=== PATIENT | male | born 2000 | race African-American/Black ===

== ENCOUNTER 2018-02-04 02:50 | Emergency (ER) | payer BC, MEDICAID, OTHER ==
[~2018-02-04] VITALS: Ht 172.7 cm; Wt 68.9 kg
--- NOTE | 2018-02-04 03:01 | NUR ---
PT HARITHARA FROM TRANSITIONAL HOME STATES "RT RIB PAIN SINCE YESTERDAY MORNING"; DENIES TRAUMA PT AOX3 RR EVEN AND UNLABORED. NO SOB NOTED. NAD NOTED. NO NVD AT THIS TIME. PT GOWNED AND PLACED ON MONITOR. DR WALLIS AT BEDSIDE FOR EVAL.
[2018-02-04] MEDS ORDERED: HYDROCODONE/APAP 10/325MG 1 EA TABLET ONE (03:06)
[2018-02-04] MEDS: HYDROCODONE/APAP 10/325MG 1 EA TABLET PO ONE (03:09)
--- NOTE | 2018-02-04 03:37 | NUR ---
RADIOLOGY AT BEDSIDE FOR CXR
[2018-02-04 03:59] LABS: CALCIUM, SERUM 8.8 mg/dL (8.5-10.1); CREATININE 0.6 mg/dL (0.6-1.3); POTASSIUM 3.5 mmol/L (3.5-5.1)
[2018-02-04 04:02] LABS: BASOPHILS # (AUTO) 0.1 /CMM (0.0-0.2); BASOPHILS % (AUTO) 0.8 % (0.0-2.0); EOSINOPHILS % (AUTO) 6.8 % (0.0-6.0); HEMATOCRIT 22 % (39-51); HEMOGLOBIN 7.3 g/dL (13.5-17.5); LYMPHOCYTES # (AUTO) 2.9 /CMM (0.8-4.8); LYMPHOCYTES % (AUTO) 37.5 % (20.0-44.0); MEAN CORPUSCULAR HGB CONC 34 g/dl (31.0-36.0); MEAN CORPUSCULAR VOLUME 94 fL (80-96); MONOCYTES # (AUTO) 0.4 /CMM (0.1-1.30); MONOCYTES % (AUTO) 5.4 % (2.0-12.0); NEUTROPHILS # (AUTO) 3.9 /CMM (1.8-8.9); NEUTROPHILS % (AUTO) 49.5 % (43.0-81.0); PLATELET COUNT (AUTO) 252 /CMM (150-450); RDW COEFFICIENT OF VARIATION 27.3 (11.5-15.0); WHITE BLOOD COUNT (AUTO) 7.8 K/uL (4.3-11.0)
--- NOTE | 2018-02-04 04:30 | NUR ---
CALLED [facility], SPOKE TO JESUS, PENDING CXR TO BE READ NEXT.
[2018-02-04 05:19] LABS: EOSINOPHILS % (MANUAL) 10 % (0-4); LYMPHOCYTES % (MANUAL) 37 % (16-48); MONOCYTES % (MANUAL) 7 % (0-11.0); NEUTROPHILS % (MANUAL) 46 (42-76)
--- NOTE | 2018-02-04 05:27 | NUR ---
Patient discharged to home in stable condition. Written and verbal after care instructions given. Patient verbalizes understanding of instruction. ambulatory with a steady gait. instructed pt not to drive. pt verbalize understanding.
[2018-02-04 05:28] VITALS: BP 126/85
== END 2018-02-04 05:29 | disposition home or self-care (01) ==
LOC: ER 02:52
DX: D57.00 Hb-SS disease with crisis, unspecified (principal)
CPT/HCPCS: 36415; 71045-TC; 80048-TC; 85025-TC; 85045-TC; A4606; Z7610

== ENCOUNTER 2018-02-24 16:51 | Emergency (ER) | payer BC, MEDICAID ==
[~2018-02-24] VITALS: Ht 177.8 cm; Wt 68.0 kg
--- NOTE | 2018-02-24 17:04 | NUR ---
SALUD FROM HOME DT ABDOMINAL PAIN, NAUSEA AND VOMITTING SINCE THIS AM. PATIENT IS AWAKE AND ALERT. NOT IN DISTRESS. SKIN IS WARM TO TOUCH AND NON DIAPHORETIC. AFEBRILE. VSS
[2018-02-24] MEDS ORDERED: ONDANSETRON HCL/PF 4 MG/2 ML VIAL ONE ×2 (17:07→18:08)
[2018-02-24] MEDS: ONDANSETRON HCL/PF 4 MG/2 ML VIAL IVP ONE ×2 (17:14→18:11)
[2018-02-24] MEDS: IV NS 0.9% 1,000 ML BAG IV ONE (17:14)
--- NOTE | 2018-02-24 17:16 | NUR ---
PT WAS TAKEN TO CT
[2018-02-24 17:34] LABS: ALBUMIN 4.1 g/dL (3.4-5.0); BILIRUBIN,DIRECT 0.7 mg/dL (0.0-0.2); BILIRUBIN,TOTAL 4.8 mg/dL (0.2-1.0); CREATININE 0.6 mg/dL (0.6-1.3); POTASSIUM 3.5 mmol/L (3.5-5.1); TOTAL PROTEIN, SERUM 9.2 g/dL (6.4-8.2)
[2018-02-24 17:35] LABS: BASOPHILS % (AUTO) 0.2 % (0.0-2.0); EOSINOPHILS % (AUTO) 2.2 % (0.0-6.0); HEMATOCRIT 25 % (39-51); HEMOGLOBIN 8.5 g/dL (13.5-17.5); LYMPHOCYTES # (AUTO) 1.9 /CMM (0.8-4.8); LYMPHOCYTES % (AUTO) 22.4 % (20.0-44.0); MEAN CORPUSCULAR HGB CONC 35 g/dl (31.0-36.0); MEAN CORPUSCULAR VOLUME 86 fL (80-96); MONOCYTES # (AUTO) 0.7 /CMM (0.1-1.30); MONOCYTES % (AUTO) 8.2 % (2.0-12.0); NEUTROPHILS # (AUTO) 5.8 /CMM (1.8-8.9); PLATELET COUNT (AUTO) 293 /CMM (150-450); RDW COEFFICIENT OF VARIATION 29.4 (11.5-15.0); RED BLOOD CELL COUNT(AUTO) 2.86 MIL/uL (4.5-6.0); WHITE BLOOD COUNT (AUTO) 8.6 K/uL (4.3-11.0)
[2018-02-24] MEDS ORDERED: HYDROMORPHONE INJ 0.5 MG/0.5 ML SYRINGE ONE (18:08)
[2018-02-24] MEDS: HYDROMORPHONE INJ 2 MG/ML DISP.SYRIN IV ONE (18:12)
--- NOTE | 2018-02-24 18:18 | NUR ---
CALLED [facility] FOR PANEL CALL AND DR EATON WAS PAGED.
--- NOTE | 2018-02-24 18:25 | NUR ---
CALLED NURSING ELECTROTYPER AND REQUESTED A MED SURG BED FOR THIS PT.
--- NOTE | 2018-02-24 18:28 | NUR ---
PT IS ASSIGNED TO MED SURG RM#: [id number], PT IS DIAGNOSED WITH INTRACTABLE ABD PAIN, AND DR EATON IS THE ACCEPTING MD.
[2018-02-24] MEDS ORDERED: Z GUARD REMEDY 2 OZ OINT TP PRN (18:30)
[2018-02-24] MEDS ORDERED: MAGNESIUM HYDROXIDE 30 ML UDC PO PRN (18:30)
[2018-02-24] MEDS ORDERED: ZOLPIDEM TARTRATE 5 MG TABLET PO PRN (18:30)
[2018-02-24] MEDS ORDERED: MAG HYDROX/AL HYDROX/SIMETH 30 ML UDC PO PRN (18:30)
[2018-02-24] MEDS ORDERED: HYDROCODONE/APAP 5/325MG 1 EACH TABLET PO PRN (18:30)
[2018-02-24] MEDS ORDERED: ACETAMINOPHEN 325 MG TABLET PO PRN (18:30)
[2018-02-24] MEDS ORDERED: ONDANSETRON HCL/PF 4 MG/2 ML VIAL IVP PRN (18:30)
[2018-02-24] MEDS ORDERED: IV D5/0.45 NACL 1,000 ML IV SCH (18:30)
[2018-02-24] MEDS ORDERED: HYDROMORPHONE INJ 2 MG/ML DISP.SYRIN IV PRN (18:30)
--- NOTE | 2018-02-24 18:46 | NUR ---
REPORT GIVEN TO DICK FERRELL FOR JC
--- NOTE | 2018-02-24 21:04 | NUR ---
PATIENT RETURNED FROM FLOOR. VSS.
[2018-02-24 21:48] VITALS: BP 147/79
--- NOTE | 2018-02-24 21:50 | NUR ---
PT ACCEPTED TO [facility] ROOM [address]42. [address] DR BRIGGS. # FOR REPORT [phone]
--- NOTE | 2018-02-24 22:02 | NUR ---
REPORT GIVEN TO DICK LANDIS FOR CONTINUITY OF CARE. AMBULANCE ETA [id number]
--- NOTE | 2018-02-24 23:04 | NUR ---
PATIENT TRANSPORTED TO [facility]. VSS
[2018-02-25] MEDS ORDERED: PANTOPRAZOLE 40 MG VIAL IV SCH (09:00)
== END 2018-02-24 18:48 | disposition other institution (70) ==
LOC: ER 16:52
DX: R10.9 Unspecified abdominal pain (principal); R11.2 Nausea with vomiting, unspecified; D64.9 Anemia, unspecified
CPT/HCPCS: 36415; 80048-TC; 80076-TC; 83690-TC; 85025-TC; 87081-TC; A4606; J2405; J7030; Z7610

== ENCOUNTER 2018-09-25 00:54 | Emergency (ER) | payer BC ==
[~2018-09-25] VITALS: Ht 195.6 cm; Wt 77.1 kg
--- NOTE | 2018-09-25 01:18 | NUR ---
BIBRA SATURATION 96%. AOX4, HOMELESS. VERBALIZING OF COUGH AND CONGESTION AND RIGHT RIB CAGE PAIN. AFEBRILE. TACHYCARDIC ON MONITOR HR 121. WITH HISTORY OF SICKLE CELL CRISIS. ABLE TO AMBULATE WELL. BILATERAL BREATH SOUND CLEAR. DR. SERRANO AT BEDSIDE ASSESS AND EXPLAINED POC.
--- NOTE | 2018-09-25 01:21 | NUR ---
CXR DONE AT BEDSIDE.
[2018-09-25] MEDS ORDERED: IBUPROFEN 600 MG TABLET PO ONE (02:28)
--- NOTE | 2018-09-25 02:55 | NUR ---
Patient discharged to home in stable condition. Written and verbal after care instructions given. Patient verbalizes understanding of instruction. patient ambulate in stable condition. medicine given as ordered. discharge paper explained. VSS
[2018-09-25] MEDS: IBUPROFEN 600 MG TABLET PO ONE (03:13)
[2018-09-25 03:14] VITALS: BP 121/84
== END 2018-09-25 03:17 | disposition home or self-care (01) ==
LOC: ER 01:00
DX: R05 Cough (principal); D57.1 Sickle-cell disease without crisis
CPT/HCPCS: 71045-TC; 87081-TC; J7030

== ENCOUNTER 2019-07-17 12:01 | Emergency (ER) | payer BC ==
[~2019-07-17] VITALS: Ht 190.5 cm; Wt 77.1 kg
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
[2019-07-17] MEDS ORDERED: ACETAMINOPHEN 325 MG TABLET PO ONE (12:30)
[2019-07-17] MEDS ORDERED: ACETAMINOPHEN 325 MG TABLET ONE (12:38)
[2019-07-17 12:47] LABS: BASOPHILS # (AUTO) 0.2 /CMM (0.0-0.2); BASOPHILS % (AUTO) 1.8 % (0.0-2.0); EOSINOPHILS % (AUTO) 3.4 % (0.0-6.0); HEMATOCRIT 27 % (39-51); LYMPHOCYTES # (AUTO) 1.5 /CMM (0.8-4.8); LYMPHOCYTES % (AUTO) 17.3 % (20.0-44.0); MEAN CORPUSCULAR HGB CONC 34 g/dl (31.0-36.0); MEAN CORPUSCULAR VOLUME 85 fL (80-96); MONOCYTES # (AUTO) 1.1 /CMM (0.1-1.30); MONOCYTES % (AUTO) 13.3 % (2.0-12.0); NEUTROPHILS # (AUTO) 5.5 /CMM (1.8-8.9); NEUTROPHILS % (AUTO) 64.2 % (43.0-81.0); PLATELET COUNT (AUTO) 310 /CMM (150-450); RED BLOOD CELL COUNT(AUTO) 3.18 MIL/uL (4.5-6.0); WHITE BLOOD COUNT (AUTO) 8.6 K/uL (4.3-11.0)
[2019-07-17 12:51] LABS: CALCIUM, SERUM 8.9 mg/dL (8.5-10.1); POTASSIUM 3.5 mmol/L (3.5-5.1)
--- NOTE | 2019-07-17 13:51 | NUR ---
[facility] Written and verbal after care instructions given to patient and police officers, both verbalizes understanding of instruction.
[2019-07-17 13:52] VITALS: BP 134/71
== END 2019-07-17 13:52 ==
LOC: ER 12:03
DX: S20.212A Contusion of left front wall of thorax, initial encounter (principal); D57.1 Sickle-cell disease without crisis; F17.200 Nicotine dependence, unspecified, uncomplicated; Z60.2 Problems related to living alone; Z59.0 Homelessness; V09.9XXA Pedestrian injured in unspecified transport accident, initial encounter; Y93.01 Activity, walking, marching and hiking; Y92.89 Other specified places as the place of occurrence of the external cause; Y99.8 Other external cause status
CPT/HCPCS: 36415; 71100-TC; 80048-TC; 85025-TC; 85045-TC

== ENCOUNTER 2019-07-21 12:47 | Emergency (ER) | payer BC, OTHER ==
[~2019-07-21] VITALS: Ht 193 cm; Wt 81.6 kg
[2019-07-21] MEDS ORDERED: HYDROCODONE/APAP 10/325MG 1 EA TABLET PO ONE (13:00)
--- NOTE | 2019-07-21 13:00 | NUR ---
JOSE, FROM [facility]MED[facility], C/O GENERALIZED PAIN 3-4hrs AGO. ON ROOM AIR, BREATHING EVENLY AND UNLABORED. KEPT COMFORTABLE, WILL CONTINUE TO MONITOR ACCORDINGLY.
--- NOTE | 2019-07-21 13:01 | NUR ---
seen the patient for eval.
[2019-07-21] MEDS ORDERED: HYDROCODONE/APAP 10/325MG 1 EA TABLET ONE (13:03)
[2019-07-21 13:05] VITALS: BP 125/84
--- NOTE | 2019-07-21 13:25 | NUR ---
wheeled patient to radiology department via wheelchair for x-ray
--- NOTE | 2019-07-21 13:34 | NUR ---
patient came back from x-ray
== END 2019-07-21 14:00 ==
LOC: ER 12:51
DX: G89.29 Other chronic pain (principal); R07.81 Pleurodynia; D57.1 Sickle-cell disease without crisis; F17.200 Nicotine dependence, unspecified, uncomplicated; Z60.2 Problems related to living alone
CPT/HCPCS: 71100-TC

== ENCOUNTER 2019-11-22 22:25 | Emergency (ER) | payer BC, MEDICAID, OTHER ==
[~2019-11-22] VITALS: Ht 188 cm; Wt 77.1 kg
--- NOTE | 2019-11-22 22:33 | NUR ---
PT CAME TO ER BED 4 BIB RA C/O SICKLE CELL CRISIS. PT STATES THAT HE HAS PRODUCTIVE COUGH FOR 2 WEEKS AND PNEUMONIA DIAGNOSED AT HIS RECENT VISIT AT [facility]. PT ALSO HAS PAIN 7/10 RIGHT LOWER BACK AT THE RIB REGION. AAOX4. NO SOB. BREATHING EVENLY AND UNLABORED ON ROOM AIR. CONNECTED TO MONITOR.
[2019-11-22] MEDS ORDERED: MORPHINE SULFATE INJ 4 MG/ML DISP.SYRIN ONE (22:53)
[2019-11-22] MEDS ORDERED: MORPHINE SULFATE INJ 2 MG/ML DISP.SYRIN ONE (22:53)
[2019-11-22] MEDS ORDERED: IV NS 0.9% 1,000 ML IV PRN (23:00)
[2019-11-22] MEDS ORDERED: MORPHINE SULFATE INJ 2 MG/ML DISP.SYRIN IV ONE (23:00)
[2019-11-22 23:21] LABS: BASOPHILS # (AUTO) 0.1 /CMM (0.0-0.2); BASOPHILS % (AUTO) 0.7 % (0.0-2.0); EOSINOPHILS % (AUTO) 3.3 % (0.0-6.0); HEMATOCRIT 21 % (39-51); LYMPHOCYTES # (AUTO) 2.4 /CMM (0.8-4.8); MEAN CORPUSCULAR HGB CONC 33 g/dl (31.0-36.0); MEAN CORPUSCULAR VOLUME 71 fL (80-96); MONOCYTES # (AUTO) 0.6 /CMM (0.1-1.30); MONOCYTES % (AUTO) 6.2 % (2.0-12.0); NEUTROPHILS # (AUTO) 5.8 /CMM (1.8-8.9); NEUTROPHILS % (AUTO) 63.8 % (43.0-81.0); PLATELET COUNT (AUTO) 187 /CMM (150-450); RED BLOOD CELL COUNT(AUTO) 2.95 MIL/uL (4.5-6.0); WHITE BLOOD COUNT (AUTO) 9.2 K/uL (4.3-11.0)
[2019-11-22 23:26] LABS: HEMOGLOBIN 6.9 g/dL (13.5-17.5)
--- NOTE | 2019-11-22 23:28 | NUR ---
XRAY AT BEDSIDE
--- NOTE | 2019-11-23 00:06 | NUR ---
TRUCK HOP AT BEDSIDE FOR BLOOD DRAW
--- NOTE | 2019-11-23 00:29 | NUR ---
BLOOD CONSENT FORM SIGNED
[2019-11-23] MEDS ORDERED: HYDROMORPHONE INJ 0.5 MG/0.5 ML SYRINGE IV ONE ×2 (00:30→07:30)
[2019-11-23] MEDS ORDERED: HYDROMORPHONE 1 MG/1 ML DISP.SYRIN ONE ×2 (00:31→07:15)
--- NOTE | 2019-11-23 02:05 | NUR ---
JIG GRINDER SET UP OPERATOR AT BEDSIDE FOR BLOOD DRAW
--- NOTE | 2019-11-23 02:20 | NUR ---
Joanie anderson in [facility] - 11/23/19 at 0242 by SABRINA PER TRACK LAYING SUPERVISOR [facility] AVAILABLE FOR ALS TRANSPORTATION 0700.
--- NOTE | 2019-11-23 02:20 | NUR ---
TRANSFER INFORMATION: PT WILL BE TRANSFERRED TO [facility] PER INSURANCE REQUEST ACCEPTING MD: DR. ETIENNE NUMBER FOR REPORT: [phone] ROOM ASSIGNMENT: [id number] BED 1 PENDING AMBULANCE ETA
--- NOTE | 2019-11-23 02:20 | NUR ---
PER ASSEMBLY MACHINE FEEDER [facility] AMBULANCE ETA 0700
--- NOTE | 2019-11-23 02:31 | NUR ---
CALLED [facility] FOR TRANSPORTATION. SOONEST ETA 07, DID NOT SET UP TRANSPORTATION
[2019-11-23 02:36] LABS: LYMPHOCYTES % (MANUAL) 25 % (16-48); MONOCYTES % (MANUAL) 5 % (0-11.0); NEUTROPHILS % (MANUAL) 67 (42-76)
[2019-11-23 02:37] LABS: EOSINOPHILS % (MANUAL) 3 % (0-4)
--- NOTE | 2019-11-23 02:41 | NUR ---
CALLED [facility] FOR TRANSPORTATION, SOONEST ETA 1100. DID NOT SET UP TRANSPORTATION
--- NOTE | 2019-11-23 04:37 | NUR ---
REPORT GIVEN TO RENETTA JENNINGS AT [facility] FOR JC.
--- NOTE | 2019-11-23 05:15 | NUR ---
PER THAO FROM LAB, RBC STILL NOT READY
--- NOTE | 2019-11-23 05:18 | NUR ---
PATIENT IS SLEEPING. EASILY AROUSABLE THROUGH TOUCH AND VERBAL STIMULI. BREATHING EVENLY AND UNLABORED ON ROOM AIR. CONNECTED TO MONITOR. CALL LIGHT WITHIN REACH. WILL CONTINUE TO MONITOR.
[2019-11-23 07:07] VITALS: BP 40/83
--- NOTE | 2019-11-23 07:31 | NUR ---
report given to ambulace transport team for gwendolyn. and trasnferring responsibilities.
== END 2019-11-23 07:32 | disposition short-term general hospital (02) ==
LOC: ER 22:31
DX: D57.00 Hb-SS disease with crisis, unspecified (principal); F17.200 Nicotine dependence, unspecified, uncomplicated; Z60.2 Problems related to living alone
CPT/HCPCS: 36415 ×2; 71046; 85025; 85045; 85240; 86850; 86921; 87081; 96374; 96375; 96376; 99291; J1170 ×2; J2270 ×2; J7030 ×2

== ENCOUNTER 2020-01-29 19:52 | Inpatient (IN) | payer BC ==
[~2020-01-29] VITALS: Ht 193 cm; Wt 70.3 kg
--- NOTE | 2020-01-29 20:13 | NUR ---
BIBRA[address] TO ER BED 7. AAOX3. NOTED NON PRODUCTIVE COUGH. SATTING @ 98% O9N RA. BROUGHT IN FOR COUGH FOR THE PAST 2 WEEKS. PT REPORTS THAT HE IS HAVING GEN BODY AND GEN BODY WEAKNESS. NOTED FEVER OF 101.0 ORAL TEMP. PT IS NOTED WITH SCLERAL YELLOWING AND PALMS ARE NOTED JAUNDICE. PT DID REPORT THAT HE HAVE A LIVER CONDITION BUT UNABLE TO SPECIFY WHAT CONDITION. PT ALSO REPORTS THAT HE WAS RECENTLY AT THE HOSPITAL FOR PNA. PT HAS BEEN TESTED FOR COVID AND REPORTS THAT RESULT WAS NEGATIVE. YAA GUZMAN AT BEDSIDE FOR EVAL. ORDERS RECEIVED NOTED AND CARRIED OUT. IV LINEOBTQAINED ON R UPPER ARM 18G. BLOOD DRAWN AND GIVEN TO NET MAKER AT BEDSIDE. WILL CONTINUE TO MONITOR PT
[2020-01-29] MEDS ORDERED: ONDANSETRON HCL/PF 4 MG/2 ML VIAL ONE (20:26)
[2020-01-29] MEDS ORDERED: ACETAMINOPHEN ES 500 MG TABLET ONE (20:27)
[2020-01-29] MEDS ORDERED: MORPHINE SULFATE INJ 4 MG/ML DISP.SYRIN ONE ×2 (20:27→22:31)
[2020-01-29] MEDS ORDERED: ONDANSETRON HCL/PF 4 MG/2 ML VIAL IV ONE (20:30)
[2020-01-29] MEDS ORDERED: ACETAMINOPHEN ES 500 MG TABLET PO ONE (20:30)
[2020-01-29] MEDS ORDERED: MORPHINE SULFATE INJ 2 MG/ML DISP.SYRIN IV ONE ×2 (20:30→22:30)
[2020-01-29] MEDS ORDERED: IV NS 0.9% 1,000 ML BAG IV ONE ×2 (20:30→21:30)
[2020-01-29 20:42] LABS: CALCIUM, SERUM 7.9 mg/dL (8.5-10.1); CREATININE 0.8 mg/dL (0.6-1.3); POTASSIUM 3.3 mmol/L (3.5-5.1)
[2020-01-29 20:54] LABS: ALBUMIN 2.7 g/dL (3.4-5.0); BILIRUBIN,TOTAL 5.9 mg/dL (0.2-1.0); TOTAL PROTEIN, SERUM 8.1 g/dL (6.4-8.2)
--- NOTE | 2020-01-29 21:15 | NUR ---
COVID SWAB DONE AND SENT TO LAB
--- NOTE | 2020-01-29 21:18 | NUR ---
LAB WILL REDRAW BLOOD DUE TO INACCURACIES FROM FIRST BLOOD DRAW, PENDING LAB RESULTS.
--- NOTE | 2020-01-29 21:36 | NUR ---
CUPOLA TENDER WILL CALL BACK FOR CLINICALS.
[2020-01-29 21:46] LABS: BASOPHILS # (AUTO) 0.2 /CMM (0.0-0.2); BASOPHILS % (AUTO) 1.5 % (0.0-2.0); EOSINOPHILS % (AUTO) 0.4 % (0.0-6.0); LYMPHOCYTES # (AUTO) 5.2 /CMM (0.8-4.8); LYMPHOCYTES % (AUTO) 41.3 % (20.0-44.0); MEAN CORPUSCULAR HGB CONC 33 g/dl (31.0-36.0); MEAN CORPUSCULAR VOLUME 114 fL (80-96); MONOCYTES % (AUTO) 8.2 % (2.0-12.0); NEUTROPHILS # (AUTO) 6.1 /CMM (1.8-8.9); NEUTROPHILS % (AUTO) 48.6 % (43.0-81.0); PLATELET COUNT (AUTO) 164 /CMM (150-450)
[2020-01-29 21:51] LABS: HEMATOCRIT 17 % (39-51); HEMOGLOBIN 5.7 g/dL (13.5-17.5)
[2020-01-29 21:52] LABS: C-REACTIVE PROTEIN 2.9 mg/dL (0.0-0.9)
--- NOTE | 2020-01-29 22:52 | NUR ---
REPORT GIVEN TO DICK BRAMBILA FOR JC.
[2020-01-29] MEDS ORDERED: IV NS 0.9% 1,000 ML IV PRN ×2 (23:00→23:21)
[2020-01-29] MEDS ORDERED: ONDANSETRON HCL/PF 4 MG/2 ML VIAL IVP PRN ×2 (23:00→23:30)
[2020-01-29] MEDS ORDERED: MAG HYDROX/AL HYDROX/SIMETH 30 ML UDC PO PRN ×2 (23:00→23:30)
[2020-01-29] MEDS ORDERED: MORPHINE SULFATE INJ 2 MG/ML DISP.SYRIN IV PRN (23:00)
[2020-01-29] MEDS ORDERED: TEMAZEPAM 15 MG CAPSULE PO PRN ×2 (23:00→23:30)
[2020-01-29] MEDS ORDERED: CEFEPIME 1 GM in IV D5W 50 ML IV SCH (23:00)
[2020-01-29] MEDS ORDERED: MAGNESIUM HYDROXIDE 30 ML UDC PO PRN ×2 (23:00→23:30)
[2020-01-29] MEDS ORDERED: ACETAMINOPHEN 325 MG TABLET PO PRN ×3 (23:00→23:45)
[2020-01-29] MEDS ORDERED: HYDROCODONE/APAP 5/325MG 1 EACH TABLET PO PRN (23:00)
[2020-01-29] MEDS ORDERED: Z GUARD REMEDY 2 OZ OINT TP PRN ×2 (23:00→23:30)
--- NOTE | 2020-01-29 23:20 | NUR ---
BREAD DUMPER OPENING NOTES: RECEIVED PT ON 2LPM VIA NC AND IS TOLERATING WELL. PT SATURATING AT 100%. PT CRYING AND SAYING HE IS STILL IN PAIN. PT REFUSING TO HAVE SKIN CHECK. PT HAS IV ON R HAND #20G AND IS PATENT AND INTACT. CURRENTLY H/L. PT ALSO HAS IV ON LILIA #18G AND IS PATENT AND INTACT. PT TO BE STARTED ON FLUIDS SOON. BED KEPT IN LOW, LOCKED POSITION, AND SIDE RAILS X 3 UP. CALL LIGHT WITHIN REACH. BED ALARM ACTIVATED. PT ON TELE MONITOR AND READING SHOWS ST 109. WILL CONTINUE TO MONITOR PT.
--- NOTE | 2020-01-29 23:20 | NUR ---
LENNY JENNINGS NOTES: PT IS REFUSING SKIN CHECK IN BILATERAL GROIN AREA AND SACRAL AREA. "LEAVE THAT AREA ALONE." Addendum: 01/30/20 at 0110 by MATT BEJARANO RN PT ALSO REFUSING TO ANSWER ALL ASSESSMENT QUESTIONS. PT WOULD JUST LIKE TO BE LEFT ALONE.
--- NOTE | 2020-01-29 23:23 | NUR ---
PT TRANSPORTED TO UNIT ON GURNEY WITH EMT AND RN AT BEDSIDE W/ ACLS PROTOCOL. NAD NOTED DURING TRANSPORT.
[2020-01-29 23:26] LABS: BAND % (MANUAL) 5 % (0.0-5.0); LYMPHOCYTES % (MANUAL) 13 % (16-48); METAMYELOCYTES % 1 % (0-0); MONOCYTES % (MANUAL) 8 % (0-11.0); NEUTROPHILS % (MANUAL) 71 (42-76); REACTIVE LYMPHOCYTES 2 % (0-0)
[2020-01-29 23:31] LABS: WHITE BLOOD COUNT (AUTO) 8.7 K/uL (4.3-11.0)
[2020-01-29 23:41] LABS: BILIRUBIN,DIRECT 3.8 mg/dL (0.0-0.2)
[2020-01-29] MEDS ORDERED: VANCOMYCIN HCL 1.25 GM in IV D5W 250 ML IV ONE (23:45)
[2020-01-30] VITALS (8 sets, daily range): BP systolic 104–114; BP diastolic 24–86
--- NOTE | 2020-01-30 00:19 | NUR ---
LENNY JENNINGS NOTES: CALLED LAB. BLOOD HAS TO BE ORDERED FROM [facility]. MIGHT TAKE A COUPLE OF HOURS PER LAB. Addendum: 01/30/20 at 0025 by MATT BEJARANO RN PT HAS A LOT OF ANTIBODIES PER LAB.
--- NOTE | 2020-01-30 00:25 | NUR ---
ACID LEVELER NOTES: NOTIFIED DR. STOVER ABOUT LACTIC ACID 3.1 TRENDING DOWN. ALSO, AWARE THAT PT MAY NOT BE TRANSFUSED UNTIL BLOOD IS READY FROM [facility].
[2020-01-30] MEDS ORDERED: VANCOMYCIN 1 GM VIAL ONE ×2 (00:29→00:30)
[2020-01-30] MEDS: IV NS 0.9% 1,000 ML IV PRN ×2 (00:47→15:09)
--- NOTE | 2020-01-30 00:48 | NUR ---
FULL ROLL INSPECTOR NOTES: HAD TO MANUALLY ADMIN VANCO 1.25MG IT HAD TO BE MIXED AND DRAWN INTO ONE BAG. NO PHARMACY AVAILABLE. CHARGE NURSE HAD TO OVERRIDE MEDICATION. WILL RUN AT 167ML/HR ORDERED.
--- NOTE | 2020-01-30 00:50 | NUR ---
BUSINESS ANALYST INTERN NOTES: CLARIFIED WITH DR. SOTVER THAT REGULAR DIET WAS CANCELLED. PT OK TO BE ON REGULAR DIET.
--- NOTE | 2020-01-30 03:20 | NUR ---
ASSISTANT HOUSEKEEPING MANAGER NOTES: NO BLOOD AVAILABLE YET.
--- NOTE | 2020-01-30 04:25 | NUR ---
SERVICE LEARNING COORDINATOR NOTES: CALLED LAB TO FOLLOW UP ON BLOOD. SPOKE WITH SIL AND SAID THAT BLOOD MAY TAKE ANOTHER 4 HOURS IT IS BEING ORDERED FROM [facility].
[2020-01-30] MEDS: MORPHINE SULFATE INJ 2 MG/ML DISP.SYRIN IV PRN ×5 (04:52→21:09)
[2020-01-30] MEDS: ACETAMINOPHEN 325 MG TABLET PO PRN ×2 (04:54→23:40)
--- NOTE | 2020-01-30 05:01 | NUR ---
BUSINESS IMPROVEMENT MANAGER NOTES: PT CRYING AND SCREAMING THAT HE IS IN 07/02 ACHY GENERALIZED PAIN. PT WAS ADMINISTERED MORPHINE 4MG IV. PT ALSO REQUESTING FOR TYLENOL 650MG PO. ADMINISTERED WELL. WILL CONTINUE TO MONITOR. Addendum: 01/30/20 at 0503 by MATT BEJARANO RN PT ALSO PLACED ON 2LPM VIA NC FOR COMFORT MORPHINE 4MG WAS ADMINISTERED.
--- NOTE | 2020-01-30 07:30 | NUR ---
MIRROR DEPARTMENT SUPERVISOR CLOSING NOTES: ALL NEEDS WERE ATTENDED AND ANTICIPATED FOR. PT REMAINS ON 2LPM VIA NC AND IS TOLERATING WELL. NO SOB NOTED. NO S/S OF DISTRESS. PT HAS LILIA #18G AND IS PATENT AND INTACT. CURRENTLY H/L. PT ALSO HAS R HAND #20G AND IS BEING INFUSED WITH IV NS AT 100ML/HR. AWAITING FOR BLOOD TO BE READY FROM LAB IT IS BEING ORDERED FROM [facility] SO TRANSFUSION WAS NOT STARTED. CONSENT OBTAINED AND IS IN CHART. 2 UNITS OF BLOOD TO BE ADMINISTERED. BED KEPT IN LOW, LOCKED POSITION, AND SIDE RAILS X 2 UP. BED ALARM ACTIVATED. ENDORSED TO AM NURSE, MAIKEL RN FOR JC.
--- NOTE | 2020-01-30 07:50 | NUR ---
ASSOCIATE AGENT INSURANCE SALES OPENING NOTE Patient is resting in bed, A/O x4, showing no signs of acute distress or SOB, saturating 100% on 2L NC. Tele monitor ST 100s. IV line in the NASH #18g is clean and intact running NS @ 100ml/hour. IV line in the right hand clean and intact s/l. Awaiting for blood to arrive to transfuse 2 unite PRBCs. Bed is in lowest position, side rails x2 in upright position, call light is within reach, fall and safety precautions enforced. Will continue with plan of care.
[2020-01-30] MEDS ORDERED: FEE PK DOSING 1 MIN EA MC ONE (08:10)
[2020-01-30] MEDS: VANCOMYCIN 1.25 GM in IV D5W 250 ML IV SCH ×2 (08:38→17:04)
[2020-01-30] MEDS: DOXYCYCLINE HYCLATE (100 MG) 100 MG TABLET PO SCH (08:38)
[2020-01-30] MEDS ORDERED: DOXYCYCLINE HYCLATE (100 MG) 100 MG TABLET PO SCH (09:00)
--- NOTE | 2020-01-30 09:41 | NUR ---
ARTS THERAPIST NOTE Patient is complaining of 10/10 pain. 4mg morphine IVP pulled from the pyxis. Only 2mg morphine was administered due to accidentally throwing the other 2mg in the sharps container. I informed pharmacy and they advised me to make a note and contact the doctor to request for a one time order for morphine 2mg IVP. Dr. Welsh made aware and order given for 2mg morphine IVP ONE TIME. Will carry out orders. Patient remains stable, will continue to monitor.
[2020-01-30] MEDS ORDERED: MORPHINE SULFATE INJ 2 MG/ML DISP.SYRIN IV ONE (10:00)
[2020-01-30] MEDS: CEFEPIME 1 GM in IV D5W 50 ML IV SCH ×2 (11:19→21:09)
--- NOTE | 2020-01-30 17:41 | NUR ---
DICK NOTE Contacted lab 4 times throughout the day. Blood has not arrived from [email or web address] yet. aware. Addendum: 01/30/20 at 1859 by KIMBERLY BROWN RN ORDERED TO REPEAT CBC FOR NOW.
--- NOTE | 2020-01-30 19:29 | NUR ---
BALING MACHINE TENDER CLOSING NOTE Patient is resting in bed, A/O x4, showing no signs of acute distress or SOB, saturating 100% on RA. Tele monitor ST 100s-120s. IV line in the NASH #18g is clean and intact running NS @ 100ml/hour. IV line in the right hand clean and intact s/l. Awaiting for blood to arrive since last night to transfuse 2 units PRBCs, MD is aware of delay. All patient needs met, all due medications given. Bed is in lowest position, side rails x2 in upright position, call light is within reach, fall and safety precautions enforced. Will endorse to ed tech.
--- NOTE | 2020-01-30 19:53 | NUR ---
PALAEONTOLOGIST NOTES PATIENT IN BED, AWAKE, ALERT AND ORIENTED X 4. BREATHING EVEN AND UNLABORED ON 2L NC. SHOWS NO SIGNS OF ACUTE RESPIRATORY DISTRESS, NO ACUTE PAIN. TELE MONITOR ST 110'S. IV ON LILIA 18G AND R HAND 20G RUNNING NS AT 100ML/HR. SHOWS NO SIGNS OF INFILTRATION, NO REDNESS. SAFETY PRECAUTIONS IN PLACE. BED IN LOWEST POSITION, LOCKED, AND CALL LIGHT KEPT WITHIN REACH. WILL CONTINUE TO MONITOR.
[2020-01-30 20:33] LABS: BASOPHILS # (AUTO) 0.1 /CMM (0.0-0.2); BASOPHILS % (AUTO) 0.6 % (0.0-2.0); EOSINOPHILS % (AUTO) 0.3 % (0.0-6.0); LYMPHOCYTES # (AUTO) 1.5 /CMM (0.8-4.8); LYMPHOCYTES % (AUTO) 16.9 % (20.0-44.0); MEAN CORPUSCULAR HGB CONC 33 g/dl (31.0-36.0); MEAN CORPUSCULAR VOLUME 115 fL (80-96); MONOCYTES # (AUTO) 0.9 /CMM (0.1-1.30); MONOCYTES % (AUTO) 10.1 % (2.0-12.0); NEUTROPHILS # (AUTO) 6.5 /CMM (1.8-8.9); NEUTROPHILS % (AUTO) 72.1 % (43.0-81.0); PLATELET COUNT (AUTO) 132 /CMM (150-450)
[2020-01-30 20:36] LABS: CALCIUM, SERUM 6.2 mg/dL (8.5-10.1); CREATININE 0.5 mg/dL (0.6-1.3); POTASSIUM 4.3 mmol/L (3.5-5.1); RED BLOOD CELL COUNT(AUTO) 1.31 MIL/uL (4.5-6.0)
[2020-01-30 20:39] LABS: HEMATOCRIT 15 % (39-51)
--- NOTE | 2020-01-30 21:09 | NUR ---
BOBBIN COIL WINDER NOTES PATIENT COMPLAINING OF PAIN 10/10. GIVEN PRN MORPHINE 4MG. WILL CONTINUE TO MONITOR
[2020-01-30 21:19] LABS: BAND % (MANUAL) 1 % (0.0-5.0); LYMPHOCYTES % (MANUAL) 14 % (16-48); NEUTROPHILS % (MANUAL) 77 (42-76)
[2020-01-30 21:20] LABS: MONOCYTES % (MANUAL) 8 % (0-11.0)
--- NOTE | 2020-01-30 23:40 | NUR ---
PRACTICE MANAGEMENT CONSULTANT NOTES PATIENT LOW GRADE FEVER 99.6. GIVEN PRN TYLENOL AT 2340, TO PREPARE FOR BLOOD TRANSFUSION. WILL CONTINUE TO MONITOR.
[2020-01-31] VITALS (32 sets, daily range): BP systolic 59–157; BP diastolic 2–126
[2020-01-31] MEDS: VANCOMYCIN 1.25 GM in IV D5W 250 ML IV SCH ×3 (00:01→17:00)
[2020-01-31] MEDS: MORPHINE SULFATE INJ 2 MG/ML DISP.SYRIN IV PRN ×4 (01:18→18:05)
--- NOTE | 2020-01-31 01:18 | NUR ---
POULTRY HATCHERY MAN NOTES PATIENT COMPLAINING OF PAIN 07/02. GIVEN PRN MORPHINE 4MG 0118. WILL CONTINUE TO MONITOR.
[2020-01-31] MEDS: HYDROCODONE/APAP 5/325MG 1 EACH TABLET PO PRN ×2 (04:33→08:32)
--- NOTE | 2020-01-31 04:33 | NUR ---
SOLAR MAINTENANCE TECHNICIAN NOTES PATIENT COMPLAINING OF PAIN, CANNOT WAIT AN HOUR FOR NEXT DOSE OF MORPHINE. GIVEN PRN NORCO AT 6645
[2020-01-31] MEDS: IV NS 0.9% 1,000 ML IV PRN (04:36)
--- NOTE | 2020-01-31 05:05 | NUR ---
SUPERVISOR PAYROLL NOTES INFUSED 1 UNIT OF PRBC. NO S/S OF TRANSFUSION REACTION, VITAL SIGNS ARE STABLE AND NO FEVER. AWAITING ORDERS FROM MD FOR ANOTHER UNIT OF PRBC. WILL CONTINUE TO MONITOR.
--- NOTE | 2020-01-31 05:41 | NUR ---
BREASTFEEDING PEER COUNSELOR NOTES PATIENT COMPLAINING OF PAIN 10/10. GIVEN PRN MORPHINE 4MG AT 0541. WILL CONTINUE TO MONITOR.
--- NOTE | 2020-01-31 06:47 | NUR ---
ATTRACTIONS ASSOCIATE NOTES PATIENT IN BED, ASLEEP, ALERT AND ORIENTED X 4. BREATHING EVEN AND UNLABORED ON 2L NC. SHOWS NO SIGNS OF ACUTE RESPIRATORY DISTRESS, NO ACUTE PAIN. TELE MONITOR ST 110'S. IV ON R FOREARM 20G RUNNING NS AT 100ML/HR. SHOWS NO SIGNS OF INFILTRATION, NO REDNESS. ALL DUE MEDICATIONS GIVEN. S/P 1 UNIT OF PRBC GIVEN. AWAITING FOR MD TO INPUT 2ND UNIT OF PRBC. SAFETY PRECAUTIONS IN PLACE. BED IN LOWEST POSITION, LOCKED, AND CALL LIGHT KEPT WITHIN REACH. WILL ENDORSE TO ONCOMING NURSE.
[2020-01-31] MEDS: CEFEPIME 1 GM in IV D5W 50 ML IV SCH ×2 (08:33→21:27)
[2020-01-31] MEDS: DOXYCYCLINE HYCLATE (100 MG) 100 MG TABLET PO SCH (09:17)
--- NOTE | 2020-01-31 09:58 | NUR ---
patient refused blood draw done 3rd time. Education provided, risks and benefits explained, patient still strongly refusing.
--- NOTE | 2020-01-31 10:15 | NUR ---
Patient refused to be cleaned.
[2020-01-31] MEDS: HYDROMORPHONE INJ 2 MG/ML DISP.SYRIN IV PRN ×2 (13:12→16:14)
--- NOTE | 2020-01-31 15:30 | NUR ---
Patient refused linen change; refused to be cleaned
--- NOTE | 2020-01-31 17:44 | NUR ---
Patient condition changed, HR up ti 136 , BP up to 146/101, respirations 25. Dr. Welsh informed , awaiting for decision to transfer
[2020-01-31] MEDS: ACETAMINOPHEN 325 MG TABLET PO PRN (18:40)
[2020-01-31 18:44] LABS: ABG BASE EXCESS -22.3 mmol/L; ABG OXYGEN SATURATION 97.3 % (92.0-98.5); ABG PCO2 13.7 mmHg (35.0-45.0); ABG PH 7.146 (7.350-7.450); AaDO2 180.1 mmHg; COHb 3.4 % (0.5-1.5); MetHb 1.5 % (0.0-1.5); O2Hb 92.5 % (94.0-97.0); SITE, ABG Left Radial; VENT MODE, BG 6L NASAL CANNULA
--- NOTE | 2020-01-31 18:48 | NUR ---
RT NOTE CRITICAL ABG RESULTS RELAYED TO DICK HOFF, WHO WILL RELAY RESULTS TO .
--- NOTE | 2020-01-31 18:50 | NUR ---
Critical ABG reported to
[2020-01-31 19:15] LABS: CALCIUM, SERUM 7.7 mg/dL (8.5-10.1); CREATININE 1.3 mg/dL (0.6-1.3)
--- NOTE | 2020-01-31 19:26 | NUR ---
report given to ICU nurse Alicia. Patient admitted to room 256
[2020-01-31 19:48] LABS: ALANINE AMINOTRANSFERASE 72 U/L (12-78); ALBUMIN 2.2 g/dL (3.4-5.0); ALKALINE PHOSPHATASE 212 U/L (46-116); ASPARTATE AMINOTRANSFERASE 133 U/L (15-37); BILIRUBIN,TOTAL 10.8 mg/dL (0.2-1.0); TOTAL PROTEIN, SERUM 7.2 g/dL (6.4-8.2)
[2020-01-31] MEDS ORDERED: DEXTROSE 50%-WATER 50 ML DISP.SYRIN ONE (20:00)
--- NOTE | 2020-01-31 20:00 | NUR ---
TIE MAKER NOTES, RECEIVED PATIENT FROM [facility], REPORT RECEIVED FROM KAVYA JENNINGS. PATIENT IS AWAKE, AGITATED. BREATHING SHALLOW NOT EQUAL, CANT GET O2 SATURATION ON MONITOR. BP 123/40 HR 115. PER TRANSFER RN MARIAELENA, THE PATIENT HAD CRITICAL LAB SUGAR VALUE OF 37 BEFORE LEAVING THE FLOOR, BS T THIS TIME WAS LOW CHARGE NURSE NOTIFIED AND DEXTROSE 50% GIVEN, WILL CHECK IN 15 MIN. PATIENT HAS IV ON RAC #20. PATENT AND FLUSHING WELL. NO SKIN PROBLEMS. BED IS IN LOW LOCKED POSITION CALL LIGHT WITHIN REACH WILL CONTINUE TO MONITOR.
--- NOTE | 2020-01-31 20:20 | NUR ---
BS 40 @2015. CHARGE NURSE AND MD NOTIFIED. DEXTROSE 50% GIVEN @2020 WILL CONTINUE TO MONITOR.
[2020-01-31] MEDS ORDERED: Sodium Chloride 154 MEQ in IV 10% DEXTROSE 1,000 ML IV PRN (20:30)
--- NOTE | 2020-01-31 20:35 | NUR ---
BS 115. MD AND CHARGE NURSE NOTIFIED. WILL CONTINUE TO MONITOR.
[2020-01-31 20:38] LABS: BASOPHILS # (AUTO) 0.4 /CMM (0.0-0.2); EOSINOPHILS % (AUTO) 0.5 % (0.0-6.0); LYMPHOCYTES # (AUTO) 5.3 /CMM (0.8-4.8); LYMPHOCYTES % (AUTO) 26.3 % (20.0-44.0); MEAN CORPUSCULAR HGB CONC 32 g/dl (31.0-36.0); MEAN CORPUSCULAR VOLUME 121 fL (80-96); MONOCYTES % (AUTO) 5.1 % (2.0-12.0); NEUTROPHILS # (AUTO) 13.3 /CMM (1.8-8.9); NEUTROPHILS % (AUTO) 66.1 % (43.0-81.0); PLATELET COUNT (AUTO) 89 /CMM (150-450)
[2020-01-31 20:39] LABS: RED BLOOD CELL COUNT(AUTO) 1.67 MIL/uL (4.5-6.0)
[2020-01-31 20:42] LABS: ABG BASE EXCESS -23.6 mmol/L; ABG OXYGEN SATURATION 98.2 % (92.0-98.5); ABG PCO2 14.4 mmHg (35.0-45.0); ABG PH 7.084 (7.350-7.450); ABG PO2 149.5 mmHg (75.0-100.0); AaDO2 262.5 mmHg; COHb 4.3 % (0.5-1.5); MetHb 2.3 % (0.0-1.5); O2Hb 91.7 % (94.0-97.0); SITE, ABG Left Radial
[2020-01-31 20:44] LABS: HEMATOCRIT 20 % (39-51); HEMOGLOBIN 6.5 g/dL (13.5-17.5)
[2020-01-31] MEDS: DEXTROSE 50%-WATER 50 ML DISP.SYRIN IVP PRN ×2 (20:49→20:52)
[2020-01-31] MEDS ORDERED: IV 10% DEXTROSE 1,000 ML IV SCH (21:00)
[2020-01-31 21:22] LABS: BAND % (MANUAL) 2 % (0.0-5.0); EOSINOPHILS % (MANUAL) 1 % (0-4); LYMPHOCYTES % (MANUAL) 27 % (16-48); METAMYELOCYTES % 1 % (0-0); MONOCYTES % (MANUAL) 2 % (0-11.0); NEUTROPHILS % (MANUAL) 67 (42-76)
[2020-01-31 21:29] LABS: WHITE BLOOD COUNT (AUTO) 13.7 K/uL (4.3-11.0)
[2020-01-31] MEDS ORDERED: SODIUM BICARBONATE SYR 50 MEQ/50 ML DISP.SYRIN ONE ×2 (21:30→21:57)
[2020-01-31] MEDS ORDERED: Sodium Bicarbonate 100 MEQ in IV 1/2NS 1000 ML 1,000 ML IV SCH (21:30)
--- NOTE | 2020-01-31 21:34 | NUR ---
PATIENT CODED AT 2134. CODE BLUE ACTIVATED. PATIENT WAS INTUBATED.
[2020-01-31] MEDS ORDERED: IV NS 0.9% 500 ML IV ONE (22:30)
[2020-01-31] MEDS ORDERED: PROPOFOL 100 ML IV PRN (22:30)
[2020-01-31] MEDS ORDERED: NOREPINEPHRINE 4 MG/4 ML AMPUL IV ONE ×2 (22:35→23:55)
[2020-01-31] MEDS: NOREPINEPHRINE 8 MG in IV NS 0.9% 242 ML IV PRN (22:42)
--- NOTE | 2020-01-31 22:42 | NUR ---
PATIENTS BP IS LOW BD 66/30 HR 112. LEVO DRIO @ 0.1 STARTED PER JOHNNY PRUITT. WILL CONTINUE TO MONITOR. Addendum: 02/01/20 at 0930 by PETE TORRES RN BP KEEP DROPPING AND LEVO DRIP WAS INCREASE PER PROTOCOL UP TO 1MCG/KG/MIN AT 0200
--- NOTE | 2020-01-31 22:45 | NUR ---
RT NOTES PT ORALLY INTUBATED BY ER MD WITH 7.5 ETT SECURED AT 23CM AT THE LIP LINE. [facility] MD ORDERED SETTINGS. VENT PLUGGED INTO RED OUTLET. MIST IN TUBE AND EQUAL CHEST RISE NOTED.
[2020-01-31] MEDS: BLOOD SUGAR DIAGNOSTIC 1 EACH STRIP IN SCH (22:56)
[2020-01-31 23:28] LABS: ABG OXYGEN SATURATION 99.6 % (92.0-98.5); ABG PCO2 21.5 mmHg (35.0-45.0); ABG PH 6.709 (7.350-7.450); ABG PO2 282.6 mmHg (75.0-100.0); AaDO2 408.9 mmHg; COHb 3.8 % (0.5-1.5); MetHb 4.3 % (0.0-1.5); O2Hb 91.5 % (94.0-97.0); SITE, ABG Left Radial
--- NOTE | 2020-01-31 23:30 | NUR ---
RT NOTES POST INTUBATION ABG RESULT HAS VALUES THAT ARE OUT OF THE ABG LAB'S VALIDATED RANGE
--- NOTE | 2020-01-31 23:35 | NUR ---
PATIENT CODED, CODE BLUE ACTIVATED AT 4757. SEE CODE BLUE REPORT SHEET.
[2020-01-31] MEDS ORDERED: EPINEPHRINE (1:1000) 1 MG/ML AMPUL ONE (23:53)
[2020-02-01] VITALS (20 sets, daily range): BP systolic 31–152; BP diastolic 20–90
[2020-02-01] MEDS ORDERED: IV NS 0.9% 500 ML IV ONE
[2020-02-01] MEDS ORDERED: EPINEPHRINE (1:1000) 10 MG in IV NS 0.9% 240 ML IV PRN ×2
[2020-02-01] MEDS ORDERED: EPINEPHRINE (1:1000) 1 MG/ML AMPUL ONE (00:05)
--- NOTE | 2020-02-01 00:30 | NUR ---
NOREPINEPHRINE WAS ORDERED BY . STARTED @0.1 MCG/KG/MIN @ 0025 AND INCREASED PER PROTOCOL TO 2 MCG/KG/MIN BY 0145. WILL CONTINUE TO MONITOR.
[2020-02-01] MEDS ORDERED: DOPamine 400 MG/D5W 250 ML RTU BAG IV ONE (01:00)
[2020-02-01] MEDS ORDERED: NOREPINEPHRINE 4 MG/4 ML AMPUL IV ONE ×3 (01:03→04:57)
--- NOTE | 2020-02-01 01:05 | NUR ---
BS 86 AT @0100 MD NOTIFIED, RECEIVED ORDER FOR D5NS FLUID @50ML/HR WILL CONTINUE TO MONITOR.
[2020-02-01] MEDS: BLOOD SUGAR DIAGNOSTIC 1 EACH STRIP IN SCH (01:20)
[2020-02-01] MEDS ORDERED: IV D5/ 0.9% NACL 1,000 ML IV PRN (01:30)
[2020-02-01] MEDS ORDERED: DOPamine 400 MG/D5W 250 ML RTU BAG IV SCH ×2 (01:30→04:00)
[2020-02-01] MEDS: NOREPINEPHRINE 8 MG in IV NS 0.9% 242 ML IV PRN ×2 (01:45→03:58)
--- NOTE | 2020-02-01 04:55 | NUR ---
PATIENT CODED, CODE BLUE ACTIVATED AT 0434, SEE CODE BLUE REPORT SHEET. PATIENT AT 0450.
[2020-02-01] MEDS ORDERED: CALCIUM CHLORIDE 1,000 MG/10 ML DISP.SYRIN IV ONE (04:57)
[2020-02-01] MEDS ORDERED: ETOMIDATE 2 MG/ML VIAL IV ONE (04:57)
[2020-02-01] MEDS ORDERED: SUCCINYLCHOLINE CHLORIDE 20 MG/ML VIAL IV ONE (04:57)
[2020-02-01] MEDS ORDERED: DEXTROSE 50%-WATER 50 ML DISP.SYRIN IV ONE (04:57)
[2020-02-01] MEDS ORDERED: ADENOSINE 6 MG/2 ML VIAL IVP ONE (04:57)
[2020-02-01] MEDS ORDERED: SODIUM BICARBONATE SYR 50 MEQ/50 ML DISP.SYRIN IV ONE (04:57)
[2020-02-01] MEDS ORDERED: ATROPINE SULFATE 1 MG/10 ML DISP.SYRIN IV ONE (04:57)
[2020-02-01] MEDS ORDERED: EPINEPHRINE (1:10,000) SYRINGE 1 MG/10 ML DISP.SYRIN IVP ONE (04:57)
[2020-02-01] MEDS ORDERED: VANCOMYCIN 0.75 GM in IV D5W 250 ML IV SCH (09:00)
--- NOTE | 2020-02-01 09:38 | NUR ---
NUTRITION AND DIETETICS INSTRUCTOR, DOPAMINE RX NO [id number] CANNOT FIND IV SPREAD STARTED AT 0300
[2020-02-01] MEDS ORDERED: DOPamine 400 MG in IV D5W 250 ML IV PRN (10:00)
[2020-02-02 04:09] LABS: HIV SCRN 4G wRFX Non Reactive (Non Reactive)
== END 2020-02-01 04:58 | disposition expired | DRG 720 ==
LOC: ER 19:59 → TELE-TD 23:43 → TELE2 01-30 00:21 → ICU 01-31 19:55
PROVIDERS: ADMIT Nurse Practitioner Acute Care; ATTEND Internal Medicine
PROC: 30233N1 Transfusion of Nonautologous Red Blood Cells into Peripheral Vein, Percutaneous Approach (ICD-10-PCS; 2020-01-29)
PROC: 0BH17EZ Insertion of Endotracheal Airway into Trachea, Via Natural or Artificial Opening (ICD-10-PCS; principal; 2020-01-31)
PROC: 5A1935Z Respiratory Ventilation, Less than 24 Consecutive Hours (ICD-10-PCS; principal; 2020-01-31)
PROC: 0YHJ33Z Insertion of Infusion Device into Left Lower Leg, Percutaneous Approach (ICD-10-PCS; 2020-02-01)
PROC: 5A2204Z Restoration of Cardiac Rhythm, Single (ICD-10-PCS; 2020-02-01)
DX: A41.9 Sepsis, unspecified organism (principal); J96.00 Acute respiratory failure, unspecified whether with hypoxia or hypercapnia; R65.21 Severe sepsis with septic shock; E43 Unspecified severe protein-calorie malnutrition; J18.9 Pneumonia, unspecified organism; D57.00 Hb-SS disease with crisis, unspecified; E87.2 Acidosis; Z87.01 Personal history of pneumonia (recurrent); Z59.0 Homelessness; Z82.49 Family history of ischemic heart disease and other diseases of the circulatory system; D53.9 Nutritional anemia, unspecified; E87.1 Hypo-osmolality and hyponatremia; E86.1 Hypovolemia; F12.90 Cannabis use, unspecified, uncomplicated; R74.0 Nonspecific elevation of levels of transaminase and lactic acid dehydrogenase [LDH]; J98.4 Other disorders of lung; Z68.1 Body mass index [BMI] 19.9 or less, adult; I46.9 Cardiac arrest, cause unspecified; E16.2 Hypoglycemia, unspecified; E87.6 Hypokalemia; F17.200 Nicotine dependence, unspecified, uncomplicated
CPT/HCPCS: 31720; 36415; 36600; 71045-TC; 80048-TC; 80053-TC; 80076-TC; 80202-TC; 82248-TC; 82550-TC; 82728-TC; 82803-TC; 82962-TC; 83605-TC; 83615-TC; 85025-TC; 85045-TC; 85378-TC; 85730-TC; 86140-TC; 86803; 86850-TC; 86921-TC; 87040-TC; 87081-TC; 92950-TC; 94002-TC; 94760-TC; G0378; J0153; J0171; J0330; J0461; J0692; J1170; J1265; J2270; J2405; J3370; J3490; J7030; J7042; J7050; J7060; J7070; P9016-BL